=== PATIENT | male | born 1955 | race Caucasian/White ===

== ENCOUNTER 2019-09-10 14:33 | Emergency (ER) | payer OTHER ==
[~2019-09-10] VITALS: Ht 180.3 cm; Wt 88.0 kg
--- NOTE | 2019-09-10 15:09 | NUR ---
PT WAS SEEN BY SEDRICK COOPER APN WHO HAD CHEST XRAY DONE FOR PT WHICH SHOWED FLUID ON PT'S LUNGS. PT DENIES HX CHF. PT DENIES CP/SOB. PT RESTING ON GURNEY. NADN. VSS.
[2019-09-10] MEDS ORDERED: MAGN400T36 PO (15:29)
[2019-09-10] MEDS ORDERED: ATEN25TA PO (15:29)
[2019-09-10] MEDS ORDERED: ERGO400T3 PO (15:29)
[2019-09-10] MEDS ORDERED: CYAN500T54 PO (15:29)
[2019-09-10] MEDS ORDERED: AMLO10TA8 PO (15:29)
[2019-09-10] MEDS ORDERED: COLC0.6T37 PO (15:29)
[2019-09-10] MEDS ORDERED: CALC-545 PO (15:29)
[2019-09-10] MEDS ORDERED: OMEP20TA62 PO (15:29)
[2019-09-10] MEDS ORDERED: BRIN10DR EACHEYE (15:29)
[2019-09-10] MEDS ORDERED: TRAV5DRO EACHEYE (15:29)
[2019-09-10] MEDS ORDERED: L.AC1CAP6 PO (15:29)
[2019-09-10] MEDS ORDERED: NAPR500T8 PO (15:29)
[2019-09-10] MEDS ORDERED: LEVO5TAB29 PO (15:29)
[2019-09-10] MEDS ORDERED: LOSA50TA14 PO (15:29)
[2019-09-10] MEDS ORDERED: ALBU18HF INH (15:29)
[2019-09-10] MEDS ORDERED: IPRA15SP PO (15:29)
[2019-09-10] MEDS ORDERED: MONT10TA11 PO (15:29)
[2019-09-10] MEDS ORDERED: OXYB5TAB10 PO (15:29)
[2019-09-10] MEDS ORDERED: SODIUM CHLORIDE FLUSH 10ML SYR IVF ONE (15:30)
[2019-09-10] MEDS ORDERED: LIDOCAINE 1%, 10ML ONE (15:30)
[2019-09-10 15:49] LABS: BASOPHILS # (AUTO) 0.04 x10^3/uL (0-0.1); BASOPHILS % (AUTO) 1 % (0-1); EOSINOPHILS # (AUTO) 0.14 x10^3/uL (0-0.4); EOSINOPHILS % (AUTO) 3 % (1-7); LYMPHOCYTES # (AUTO) 0.78 x10^3/uL (1-3.4); LYMPHOCYTES % (AUTO) 17 % (22-44); MD NO; MEAN CORPUSCULAR HEMOGLOBIN 32.6 pg (27.5-34.5); MEAN CORPUSCULAR HGB CONC 34.5 g/dL (33.2-36.2); MEAN CORPUSCULAR VOLUME 94.7 fL (81-97); MEAN PLATELET VOLUME 7.5 fL (7.4-10.4); MONOCYTES # (AUTO) 0.67 x10^3/uL (0.2-0.8); MONOCYTES % (AUTO) 14 % (2-9); NEUTROPHILS # (AUTO) 3.02 x10^3/uL (1.8-6.8); NEUTROPHILS % (AUTO) 65 % (42-75); PLATELET COUNT 321 x10^3/uL (130-400); RED BLOOD COUNT 4.83 x10^6/uL (4.38-5.82); RED CELL DISTRIBUTION WIDTH 13.3 % (9.4-14.8)
--- NOTE | 2019-09-10 15:50 | NUR ---
PT TAKEN TO IR IN STABLE CONDITION.
[2019-09-10 15:54] LABS: INTERNATIONAL NORMALIZED RATIO 0.91 (0.93-1.1); PROTHROMBIN TIME 9.6 Seconds (9.6-11.5)
[2019-09-10 15:56] LABS: ALBUMIN 3.8 g/dL (3.4-5.0); ANION GAP 6 mmol/L (5-15); CALCIUM 9.4 mg/dL (8.5-10.1); CHLORIDE 109 mmol/L (98-107)
[2019-09-10 16:00] LABS: ALANINE AMINOTRANSFERASE 18 U/L (12-78); ALKALINE PHOSPHATASE 59 U/L (45-117); BILIRUBIN,TOTAL 0.6 mg/dL (0.2-1.0); CREATININE 0.96 mg/dL (0.7-1.3); TOTAL PROTEIN 8.2 g/dL (6.4-8.2)
[2019-09-10 16:26] VITALS: BP 137/81
--- NOTE | 2019-09-10 16:26 | NUR ---
PT RESTING ON GURNEY. NADN. DUKES.
== END 2019-09-10 17:53 | disposition home or self-care (01) ==
LOC: ED 17:34
DX: J90 Pleural effusion, not elsewhere classified (principal); I10 Essential (primary) hypertension; Z87.891 Personal history of nicotine dependence
CPT/HCPCS: 32555; 36415; 80053; 82150; 82945; 83615; 83986; 84157; 85025; 85610; 85730; 87015; 87070; 87075; 87102; 87116; 87205; 87206; 89051; 93005; 99285; J3490

== ENCOUNTER 2019-11-06 08:47 | Outpatient (CLI) | payer OTHER ==
[~2019-11-06 08:47] MED LIST: ALBU18HF INH; AMLO10TA8 PO; ATEN25TA PO; BRIN10DR EACHEYE; CALC-545 PO; COLC0.6T37 PO; CYAN500T54 PO; ERGO400T3 PO; IPRA15SP PO; L.AC1CAP6 PO; LEVO5TAB29 PO; LOSA50TA14 PO; MAGN400T36 PO; MONT10TA11 PO; NAPR500T8 PO; OMEP20TA62 PO; OXYB5TAB10 PO; TRAV5DRO EACHEYE
[2019-11-06 09:20] LABS: CREATININE 0.73 mg/dL (0.7-1.3)
[2019-11-06] MEDS ORDERED: OMNIPAQUE 350 MG/ML, 100ML BOTTLE ONE (09:52)
== END 2019-11-06 23:59 | disposition home or self-care (01) ==
LOC: RAD 08:47
PROVIDERS: ATTEND Family Medicine
DX: J90 Pleural effusion, not elsewhere classified (principal); J98.11 Atelectasis; J92.9 Pleural plaque without asbestos; E11.9 Type 2 diabetes mellitus without complications; T75.89XA Other specified effects of external causes, initial encounter
CPT/HCPCS: 36415; 71260; 82565; Q9967

== ENCOUNTER → 2020-04-08 | Outpatient (CLI) | payer OTHER | END | disposition home or self-care (01) | LOC: CFH 07:31 | PROVIDERS: ATTEND Family Medicine | DX: Z87.891 Personal history of nicotine dependence (principal) | CPT/HCPCS: 76706 ==

== ENCOUNTER 2020-10-08 12:16 | Emergency (ER) | payer BC, OTHER ==
[~2020-10-08] VITALS: Ht 180.3 cm; Wt 85.4 kg
[~2020-10-08 12:16] MED LIST changes: +AMLO-211 PO; -AMLO10TA8 PO; -CALC-545 PO; +CALC-780 PO; -CYAN500T54 PO; +CYAN500T7 PO; -MONT10TA11 PO; +MONT10TA17 PO
[2020-10-08 12:28] VITALS: BP 133/83
--- NOTE | 2020-10-08 12:48 | NUR ---
PT "HERE FOR A BLOOD TEST". SEE TRIAGE. AWAITING ERP TO SEE. CALL LIGHT WITHIN REACH.
--- NOTE | 2020-10-08 13:07 | NUR ---
REPORT TO ELEANOR, TRANSFER OF CARE AT THIS TIME.
--- NOTE | 2020-10-08 13:53 | NUR ---
BREAK RN: PT RESTING IN ROOM. NO ACUTE DISTRESS NOTED. CALL LIGHT IN PLACE. WILL CONTINUE TO MONITOR WHILE PRIMARY RN IS ON BREAK.
--- NOTE | 2020-10-08 14:43 | NUR ---
BREAK RN: REPORT GIVEN TO HAKEEM WEBSTER
--- NOTE | 2020-10-08 15:08 | NUR ---
BLOOD DRAW COMPLETED AT THIS TIME PRIOR ORDERS FOR THE PSA HAD BEEN CANCELLED
== END 2020-10-08 15:12 | disposition home or self-care (01) ==
LOC: ED 13:52
DX: Z00.00 Encounter for general adult medical examination without abnormal findings (principal); Z88.5 Allergy status to narcotic agent
CPT/HCPCS: 36415; 84153; 99283; G0103